=== PATIENT | male | born 1970 | race Caucasian/White ===

== ENCOUNTER 2020-04-27 17:36 | Emergency (ER) | payer BC ==
[~2020-04-27] VITALS: Ht 180.3 cm; Wt 97.5 kg
[2020-04-27] MEDS ORDERED: FLUOXETINE HCL20 MG PO (17:45)
[2020-04-27] MEDS ORDERED: LISINOPRIL-HCT1 EAC1 PO (17:46)
[2020-04-27] MEDS ORDERED: KEFLEX500 MG PO (18:18)
== END 2020-04-27 18:33 | disposition home or self-care (01) ==
LOC: ED 17:36
DX: S91.115A Laceration without foreign body of left lesser toe(s) without damage to nail, initial encounter (principal); I10 Essential (primary) hypertension; Z79.899 Other long term (current) drug therapy; W22.8XXA Striking against or struck by other objects, initial encounter
CPT/HCPCS: 90471; 90715; 99282-25

== ENCOUNTER 2020-08-08 06:30 | Day surgery (SDC) | payer BC ==
[~2020-08-08] VITALS: Ht 180.3 cm; Wt 95.7 kg
[~2020-08-08 06:30] MED LIST: FLUOXETINE HCL20 MG PO; KEFLEX500 MG PO; LISINOPRIL-HCT1 EAC1 PO
--- NOTE | 2020-08-08 07:55 | NUR ---
08/08/20 0755 Rickie Corea RESPONDS TO VOICE ON ENTRY TO PACU. DENIES NAUSEA OR PAIN. ENCOURAGED PT TO PASS GAS
--- NOTE | 2020-08-08 10:41 | OR ---
[facility] [address], [place] [address] Signed DATE OF OPERATION: 08/08/2020 SURGEON: Martin Gonzalez MD PREOPERATIVE DIAGNOSES: 1. Brother with colonic polyps, age 62. 2. Chronic constipation requiring laxatives. POSTOPERATIVE DIAGNOSES: 1. 4 mm polyp at hepatic flexure. 2. 3 mm polyps x3 at 18 cm (rectum). 3. Minimal internal hemorrhoids. PROCEDURE: Colonoscopy with hot biopsy. ESTIMATED BLOOD LOSS: None. INDICATIONS: Prashanth is a 49-year-old gentleman asked to see me for his initial colonoscopy. He said he has lifelong constipation. He will have a bowel movement every 1-5 days. 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 He will need a laxative fairly often he said to help. He remembers a barium enema at age 45 at [facility]. He said that was unremarkable. He takes no fiber supplement. He found out his brother had colonic polyps removed recently at age 62 down in [place], [place]. His brother was told to follow up every 5 years as well as the rest of his family members. In the office, I gave Prashanth a booklet on colonoscopy. He understands the nature of the test along with the risks including, but not limited to gas bloating, crampy abdominal pain, bleeding, perforation requiring surgery, and missed diagnosis. He also understands the need for IV conscious sedation. He also understands that polyps grow and become cancer over 8-12 years. Consequently, he and his siblings were every 5 years due to his brother's history. He had expressed understanding and wished to proceed. PROCEDURE NOTE: Prashanth was taken into our endoscopy suite and placed in the left lateral decubitus position. He was given IV sedation with 6 mg of Versed and 150 mcg of fentanyl. A digital rectal exam was performed and this was unremarkable. The adult colonoscope was introduced and advanced all around into the cecum under direct visualization of camera without difficulty. He was either awake and talking or asleep with . He may Electronically Signed By: MARTIN GONZALEZ MD 08/08/20 1041 PATIENT NAME: PRASHANTH MEDRANO OPERATIVE REPORT DATE OF : 68 REPORT #: [id number] PHYSICIAN: MARTIN GONZALEZ MD PCP: AFSANEH MOLINA PAC REPORT IS CONFIDENTIAL AND NOT TO BE RELEASED WITHOUT AUTHORIZATION [facility] [address], [place] [address] Signed or may not have recall of the procedure. If he has recall, he probably should consider monitored anesthesia care with propofol. His prep was good. There were couple of areas of liquid particulate stool matter, much of that was suctioned out and some of that I could not get through the scope. The scope was then slowly withdrawn. The above-mentioned polyps were easily removed with the help of hot biopsy forceps. There was no diverticulosis. In the rectum, the scope had been retroflexed. He has very tiny internal hemorrhoid columns. After this, the gas was suctioned out and the colonoscope removed. Overall, Prashanth tolerated his procedure quite well. RECOMMENDATIONS: I will see Prashanth back in my office in 7 to 14 days to review his results. He will come every 5 years because of the family history. He will consider monitored anesthesia care if he has recall of the procedure. Martin Gonzalez MD [facility] /[id number] cc: MD Afsaneh Shabazz PA Copies: MARTIN GONZALEZ MD ~ Electronically Signed By: MARTIN GONZALEZ MD 08/08/20 1041 PATIENT NAME: PRASHANTH MEDRANO OPERATIVE REPORT DATE OF : 68 REPORT #: [id number] PHYSICIAN: MARTIN GONZALEZ MD PCP: AFSANEH MOLINA PAC REPORT IS CONFIDENTIAL AND NOT TO BE RELEASED WITHOUT AUTHORIZATION
--- NOTE | 2020-08-08 13:20 | NUR ---
GAVE ENCOURAGEMENT TO PT HE WAS BEING TAKEN TO SCOPE RM. PT ACKNOWLEDGED
== END 2020-08-08 08:30 | disposition home or self-care (01) ==
LOC: OPS 06:30 → DS 06:30 → OPS 06:45 → DS 06:45 → OPS 08:30
PROVIDERS: ATTEND Colon & Rectal Surgery
PROC: 0DBP8ZX Excision of Rectum, Via Natural or Artificial Opening Endoscopic, Diagnostic (ICD-10-PCS; 2020-08-08)
PROC: 0DBH8ZX Excision of Cecum, Via Natural or Artificial Opening Endoscopic, Diagnostic (ICD-10-PCS; principal; 2020-08-08 06:45)
DX: Z12.11 Encounter for screening for malignant neoplasm of colon (principal); K62.1 Rectal polyp; K59.00 Constipation, unspecified; Z83.71 Family history of colonic polyps
CPT/HCPCS: 99153; G0500; J2250; J3010; J7121